=== PATIENT | female | born 1930 | race Caucasian/White ===

== ENCOUNTER 2018-11-02 16:53 | Observation (INO) ==
--- NOTE | 2018-11-02 17:23 | Emergency Department Note ---
Disposition Clinical Impression: CHF (congestive heart failure) Qualifiers: Heart failure type: unspecified Heart failure chronicity: unspecified Qualified Code(s): I50.9 - Heart failure, unspecified Disposition: Admitted As Inpatient Condition: Good General Adult HPI - General Stated complaint: chest pain Time Seen by Provider: 11/02/18 17:17 - Related Data Home Medications Medication Instructions Recorded Confirmed RX: Amlodipine [Norvasc] 5 mg PO DAILY 04/17/15 11/02/18 RX: Ferrous Sulfate 325 mg PO DAILY 04/17/15 11/02/18 RX: Lansoprazole [Prevacid] 30 mg PO DAILY PRN 04/17/15 11/02/18 RX: Metoprolol XL (24 HR) Succ 25 mg PO DAILY 04/17/15 11/02/18 [Toprol Xl] RX: Potassium Chloride 20 meq PO DAILY 04/17/15 11/02/18 RX: Cephalexin [Keflex] 500 mg PO DAILY 02/23/18 11/02/18 Previous Rx's Medication Instructions Recorded RX: Psyllium Husk [Daily Fiber] 1 tab PO DAILY #160 capsule 11/24/17 RX: Ergocalciferol (VITAMIN D2) 50,000 unit PO QWEEK #12 capsule 05/12/18 [Drisdol (50,000 Unit)] Furosemide [Lasix] 20 mg PO DAILY #30 tablet 11/03/18 Allergies Allergy/AdvReac Type Severity Reaction Status Date / Time Sulfa (Sulfonamide AdvReac Rash Verified 09/01/18 14:57 Antibiotics) Past Medical History - Past Medical History Medical history: Reports: GERD, hypertension, other Surgical history: Reports: hysterectomy Psychiatric history: Reports: no psych history LAUNDRY MACHINE OPERATOR history: Reports: no LAUNDRY MACHINE OPERATOR history - Social History Smoking Status: Never smoker Smokeless Tobacco Status: No Alcohol use: Reports: none Drug use: Reports: none Course Vital Signs Temperature 98.9 F 11/02/18 17:23 Pulse Rate 65 11/02/18 17:23 Respiratory Rate 20 11/02/18 17:23 Blood Pressure 134/58 11/02/18 17:23 O2 Sat by Pulse Oximetry 92 11/02/18 17:23 Temperature 98.1 F 11/03/18 11:33 Pulse Rate 59 11/03/18 11:33 Respiratory Rate 18 11/03/18 11:33 Blood Pressure 128/83 11/03/18 11:33 O2 Sat by Pulse Oximetry 95 11/03/18 12:31 Oxygen Delivery Oxygen Delivery Room Air Medical Decision Making - Lab Data Result diagrams: 11/03/18 01:47 11/03/18 01:47 Lab Results 11/02/18 11/02/18 11/02/18 Range/Units 17:20 17:20 17:20 WBC 8.2 (4.3-11.1) K/mcL RBC 3.59 L (3.82-4.97) M/mcL Hgb 10.9 L (11.5-15.4) g/dL Hct 33.5 L (35.3-44.9) % MCV 93.3 (83.0-100.0) fL MCH 30.4 (28.0-33.3) pg MCHC 32.5 (31.6-35.5) g/dL RDW 13.5 (11.5-14.5) % Plt Count 185 (140-400) K/mcL MPV 10.7 (9.4-12.4) fL Immature Gran % 0.2 (0-4) % Seg Neutrophils % 87.1 % Lymphocytes % 6.6 % Monocytes % 6.1 % Eosinophils % 0.0 % Basophils % 0.0 % Neutrophils # 7.1 (1.6-8.9) K/mcL Lymphocytes # 0.5 L (0.6-4.6) K/mcL Monocytes # 0.5 (0.0-1.3) K/mcL Eosinophils # 0.0 (0.0-0.6) K/mcL Basophils # 0.0 (0.0-0.2) K/mcL Sodium 134 L (136-145) mEq/L Potassium 4.2 (3.5-5.1) mEq/L Chloride 103 (98-107) mEq/L Carbon Dioxide 24 (23-29) mEq/L BUN 20 (8-23) mg/dL Creatinine 0.99 (0.60-1.20) mg/dL Est GFR ( Amer) > 60 (> 60) Est GFR (Non-Af Amer) 53 L (> 60) BUN/Creatinine Ratio 20 (6-26) Glucose 132 H (70-105) mg/dL Calculated Osmolality 282 (280-300) Calcium 10.8 H (8.6-10.3) mg/dL Troponin I < 0.03 (< 0.04) ng/mL B-Natriuretic Peptide 1040 H (Less than 100) pg/mL Attestation Statement - Attestation Attestation: I examined this patient and my medical decision-making was reviewed with the FLAG MAKER/PA/Advanced Practice Nurse/Resident Physician. I agree with the documented findings, disposition and treatment plan as described except to the extent set forth below. She has chest pain which began at midnight last night and is constant and she does have associated diaphoresis and dyspnea but no pleuritic aspect and no radiation of the pain. I did review her EKG showing lateral T-wave inversion in leads aVL and V6 but these were also present on the previous EKG from 02/25/2016. Test results here including troponin and chest x-ray are pending. The patient is otherwise bright and alert and in no distress. [id number]
[2018-11-02 17:32] LABS: Hematocrit 33.5 % (35.3-44.9); Hemoglobin 10.9 g/dL (11.5-15.4); Immature Granulocytes % 0.2 % (0-4); Lymphocytes # 0.5 K/mcL (0.6-4.6); Lymphocytes % 6.6 %; Mean Corpuscular HGB Conc 32.5 g/dL (31.6-35.5); Mean Corpuscular Hemoglobin 30.4 pg (28.0-33.3); Mean Corpuscular Volume 93.3 fL (83.0-100.0); Mean Platelet Volume 10.7 fL (9.4-12.4); Monocytes # 0.5 K/mcL (0.0-1.3); Monocytes % 6.1 %; Neutrophils # 7.1 K/mcL (1.6-8.9); Platelet Count 185 K/mcL (140-400); Red Blood Count 3.59 M/mcL (3.82-4.97); Red Cell Distribution Width 13.5 % (11.5-14.5); Segmented Neutrophils % 87.1 %
[2018-11-02] MEDS ORDERED: Furosemide 40 MG/4 ML VIAL IVP ONE (17:49)
[2018-11-02] MEDS ORDERED: Nitroglycerin 1 INCH/GM PACKET TP ONE (17:49)
[2018-11-02 17:54] LABS: BUN/Creatinine Ratio 20 (6-26); Blood Urea Nitrogen 20 mg/dL (8-23); Calcium 10.8 mg/dL (8.6-10.3); Carbon Dioxide 24 mEq/L (23-29); Chloride 103 mEq/L (98-107); Glucose 132 mg/dL (70-105); Osmolality,Calculated 282 (280-300); Potassium 4.2 mEq/L (3.5-5.1); Sodium 134 mEq/L (136-145); Troponin I < 0.03 ng/mL (< 0.04); eGFR For Non-African Americans 53 (> 60)
--- NOTE | 2018-11-02 18:06 | Emergency Department Note ---
Disposition Clinical Impression: CHF (congestive heart failure) Qualifiers: Heart failure type: unspecified Heart failure chronicity: unspecified Qualified Code(s): I50.9 - Heart failure, unspecified Disposition: Admitted As Inpatient Condition: Fair Referrals: Tristan Rodriguez DO [Primary Care Provider] - Time of Disposition: 18:53 General Adult HPI - General Chief complaint: ED Chest Pain Stated complaint: chest pain Time Seen by Provider: 11/02/18 17:17 Source: patient Limitations: no limitations Nursing Notes Reviewed: Yes Vital Signs Reviewed: Yes - History of Present Illness HPI Narrative: Patient is a 87-year-old female with past medical history significant for hypertension, hyperlipidemia. Presenting for evaluation of chest pressure and shortness of breath. Patient states she was sleeping last night when chest pressure and shortness of breath or woke her up from sleep at approximately midnight. She did have to sit up to catch her breath. Has no prior pulmonary or cardiac history. She states that the pressure has improved somewhat since yesterday. She denies current chest pain. Pt Subjective Complaint: shortness of breath Onset (ago): hour(s) Location: chest Radiation: non-radiation Pain Scale: 0 - Related Data Home Medications Medication Instructions Recorded Confirmed Amlodipine [Norvasc] 5 mg PO DAILY 04/17/15 09/01/18 Ferrous Sulfate 325 mg PO DAILY 04/17/15 09/01/18 Lansoprazole [Prevacid] 30 mg PO DAILY PRN 04/17/15 09/01/18 Metoprolol XL (24 HR) Succ [Toprol 25 mg PO DAILY 04/17/15 09/01/18 XL] Potassium Chloride 20 meq PO DAILY 04/17/15 09/01/18 Cephalexin [Keflex] 500 mg PO DAILY 02/23/18 09/01/18 Previous Rx's Medication Instructions Recorded Psyllium Husk [Daily Fiber] 1 tab PO DAILY #160 capsule 11/24/17 Ergocalciferol (VITAMIN D2) 50,000 unit PO QWEEK #12 capsule 05/12/18 [Drisdol (50,000 Unit)] Allergies Allergy/AdvReac Type Severity Reaction Status Date / Time Sulfa (Sulfonamide AdvReac Rash Verified 09/01/18 14:57 Antibiotics) Constitutional: Denies: fever, chills Eyes: Denies: vision change ENT ED: Reports: congestion. Denies: dysphagia Cardiovascular: Reports: chest pain. Denies: palpitations, syncope Respiratory: Reports: dyspnea. Denies: cough, wheezes Gastrointestinal: Denies: abdominal pain, nausea, vomiting Genitourinary: Denies: urgency, dysuria Musculoskeletal: Denies: back pain, neck pain Integumentary: Denies: rash Neurological: Denies: headache Psychiatric: Denies: anxiety Past Medical History - Past Medical History Source: patient, nursing notes reviewed Medical history: Reports: GERD, hypertension, other Surgical history: Reports: hysterectomy Psychiatric history: Reports: no psych history TAX EXAMINER history: Reports: no TAX EXAMINER history - Social History Smoking Status: Never smoker Smokeless Tobacco Status: No Alcohol use: Reports: none Drug use: Reports: none Physical Exam - General Limitations: no limitations General appearance: alert, in no apparent distress - Head Head exam: atraumatic, normocephalic - Eye Eye exam: Present: PERRL, EOMI. Absent: scleral icterus, conjunctival injection - ENT ENT exam: normal oropharynx, mucous membranes moist - Neck Neck exam: Present: normal inspection, trachea midline - Chest Chest inspection: Present: symmetric chest wall rise - Respiratory Respiratory exam: Present: other (Bibasilar crackles). Absent: respiratory distress, wheezes, prolonged expiratory phase - Cardiovascular Cardiovascular exam: Present: regular rate, normal rhythm. Absent: systolic murmur, diastolic murmur - Abdominal Exam Abdominal exam: Present: soft, Non-Tender. Absent: distention, guarding, rebound - Extremities Exam Extremities exam: Present: pedal edema (1+). Absent: calf tenderness - Back Exam Back exam: Absent: CVA tenderness (R), CVA tenderness (L) - Neurological Exam Neurological exam: Present: alert, oriented X3, CN II-XII intact - Psychiatric Psychiatric exam: Present: normal affect, normal mood (Urine) - Skin Skin exam: Present: warm, dry. Absent: rash Course Course Narrative: We will evaluate with EKG, chest x-ray, BNP, CBC, troponin, and BNP. - Reevaluation(s) Reevaluation #1: Chest x-ray with evidence of pulmonary edema. BNP elevated at approximately 1000. Patient is saturating in the low 90s on room air with mild subjective shortness of breath. Recommend admission for evaluation of possible congestive heart failure. We will give IV Lasix as well as nitro paste. Time: 18:00 Reevaluation #2: Patient is seen and reevaluated at the bedside. No acute changes. Reports that her shortness of breath is improved. Saturating 93% on room air during my evaluation. Patient is agreeable to admission for evaluation of congestive heart failure. Did discuss this case with Dr. Day who accepts the patient for admission. Time: 18:52 Vital Signs Temperature 98.9 F 11/02/18 17:23 Pulse Rate 65 11/02/18 17:23 Respiratory Rate 20 11/02/18 17:23 Blood Pressure 134/58 11/02/18 17:23 O2 Sat by Pulse Oximetry 92 11/02/18 17:23 Temperature 98.9 F 11/02/18 17:23 Pulse Rate 64 11/02/18 18:14 Respiratory Rate 19 11/02/18 18:14 Blood Pressure 134/56 11/02/18 18:14 O2 Sat by Pulse Oximetry 91 11/02/18 18:14 Oxygen Delivery Oxygen Delivery Room Air Medical Decision Making - Lab Data Result diagrams: 11/02/18 17:20 11/02/18 17:20 Lab Results 11/02/18 11/02/18 11/02/18 Range/Units 17:20 17:20 17:20 WBC 8.2 (4.3-11.1) K/mcL RBC 3.59 L (3.82-4.97) M/mcL Hgb 10.9 L (11.5-15.4) g/dL Hct 33.5 L (35.3-44.9) % MCV 93.3 (83.0-100.0) fL MCH 30.4 (28.0-33.3) pg MCHC 32.5 (31.6-35.5) g/dL RDW 13.5 (11.5-14.5) % Plt Count 185 (140-400) K/mcL MPV 10.7 (9.4-12.4) fL Immature Gran % 0.2 (0-4) % Seg Neutrophils % 87.1 % Lymphocytes % 6.6 % Monocytes % 6.1 % Eosinophils % 0.0 % Basophils % 0.0 % Neutrophils # 7.1 (1.6-8.9) K/mcL Lymphocytes # 0.5 L (0.6-4.6) K/mcL Monocytes # 0.5 (0.0-1.3) K/mcL Eosinophils # 0.0 (0.0-0.6) K/mcL Basophils # 0.0 (0.0-0.2) K/mcL Sodium 134 L (136-145) mEq/L Potassium 4.2 (3.5-5.1) mEq/L Chloride 103 (98-107) mEq/L Carbon Dioxide 24 (23-29) mEq/L BUN 20 (8-23) mg/dL Creatinine 0.99 (0.60-1.20) mg/dL Est GFR ( Amer) > 60 (> 60) Est GFR (Non-Af Amer) 53 L (> 60) BUN/Creatinine Ratio 20 (6-26) Glucose 132 H (70-105) mg/dL Calculated Osmolality 282 (280-300) Calcium 10.8 H (8.6-10.3) mg/dL Troponin I < 0.03 (< 0.04) ng/mL B-Natriuretic Peptide 1040 H (Less than 100) pg/mL
[2018-11-02] MEDS ORDERED: Perflutren Lipid Microsphere 1.3 ML in 0.9 % Sodium Chloride 8.7 ML IVP ONE (22:00)
[2018-11-03 02:28] LABS: Basophils % 0.1 %; Eosinophils % 0.1 %; Hematocrit 31.6 % (35.3-44.9); Hemoglobin 10.4 g/dL (11.5-15.4); Immature Granulocytes % 0.3 % (0-4); Lymphocytes # 0.7 K/mcL (0.6-4.6); Lymphocytes % 10.8 %; Mean Corpuscular HGB Conc 32.9 g/dL (31.6-35.5); Mean Corpuscular Hemoglobin 30.3 pg (28.0-33.3); Mean Corpuscular Volume 92.1 fL (83.0-100.0); Mean Platelet Volume 10.8 fL (9.4-12.4); Monocytes # 0.6 K/mcL (0.0-1.3); Monocytes % 8.9 %; Neutrophils # 5.5 K/mcL (1.6-8.9); Platelet Count 148 K/mcL (140-400); Red Blood Count 3.43 M/mcL (3.82-4.97); Red Cell Distribution Width 13.5 % (11.5-14.5); Segmented Neutrophils % 79.8 %
[2018-11-03 02:51] LABS: Alanine Aminotransferase 21 Units/L (7-52); Albumin 3.8 g/dL (3.5-5.7); Albumin/Globulin Ratio 1.7 (1.1-2.2); Alkaline Phosphatase 65 Units/L (34-104); Aspartate Amino Transferase 20 Units/L (13-39); BUN/Creatinine Ratio 23 (6-26); Bilirubin,Total 0.5 mg/dL (0.3-1.0); Blood Urea Nitrogen 20 mg/dL (8-23); Calcium 10.2 mg/dL (8.6-10.3); Carbon Dioxide 26 mEq/L (23-29); Chloride 105 mEq/L (98-107); Globulin 2.2 g/dL (2.4-3.5); Glucose 93 mg/dL (70-105); Magnesium 2.2 mg/dL (1.6-2.6); Osmolality,Calculated 286 (280-300); Potassium 3.9 mEq/L (3.5-5.1); Sodium 137 mEq/L (136-145); eGFR For Non-African Americans > 60 (> 60)
[2018-11-03 03:04] LABS: Thyroid Stimulating Hormone 3.055 mcIU/mL (0.340-5.600)
--- NOTE | 2018-11-03 07:37 | Internal Med History&Physical ---
Date of Encounter: 11/02/18 Time of Encounter: 20:00 Internal Medicine - H&P: HPI Chief complaint: SOB/Chest Pain History of present illness: Ms. Brizuela is a 87 year old female with past medical history significant for hypertension and hyperlipidemia who presented to the ED for evaluation of chest pressure and shortness of breath. Patient states she was sleeping last night when she awoke with chest pressure and shortness of breath at approximately midnight. She states that she did had to sit up to catch her breath. Has no prior pulmonary or cardiac history. She states that the pressure has improved somewhat since yesterday. She denies current chest pain. Chest x-ray with evidence of pulmonary edema. BNP was found to be elevated at approximately 1000. Patient is saturating in the low 90s on room air with mild subjective shortness of breath. Patient received IV Lasix as well as nitro paste. Reports that her shortness of breath is improved. Saturating 93% on room air during my evaluation. Patient admitted for evaluation of possible congestive heart failure. Past Med Surg Social Fam HX - Past Medical History Medical history: GERD, hypertension, other Additional medical history: HHT Psychiatric history: no psych history - Past Surgical History Surgical History: hysterectomy Additional surgical history: colonoscopy - back surgery - Social History Smoking Status: Never smoker Smokeless Tobacco Status: No Alcohol use: none Drug use: none - Family History Father Living Status: Hx Family Genitourinary Disorders: Yes Mother Living Status: Hx Family Cardiac Disorders: Yes Sister Hx Family Cardiac Disorders: Yes Internal Medicine - H&P: Meds Amlodipine [Norvasc] 5 mg PO DAILY 04/17/15 [History] Ferrous Sulfate 325 mg PO DAILY 04/17/15 [History] Lansoprazole [Prevacid] 30 mg PO DAILY PRN 04/17/15 [History] Metoprolol XL (24 HR) Succ [Toprol Xl] 25 mg PO DAILY 04/17/15 [History] Potassium Chloride 20 meq PO DAILY 04/17/15 [History] Psyllium Husk [Daily Fiber] 1 tab PO DAILY #160 capsule 11/24/17 [Rx] Cephalexin [Keflex] 500 mg PO DAILY 02/23/18 [History] Ergocalciferol (VITAMIN D2) [Drisdol (50,000 Unit)] 50,000 unit PO QWEEK #12 capsule 05/12/18 [Rx] Furosemide [Lasix] 20 mg PO DAILY #30 tablet 11/03/18 [Rx] Allergy/AdvReac Type Severity Reaction Status Date / Time Sulfa (Sulfonamide AdvReac Rash Verified 09/01/18 14:57 Antibiotics) All Systems PM: A 10-system review of systems was performed and is negative for pertinent findings except as documented above in the HPI. - Constitutional Constitutional: no chills, no fever(s), no night sweats - EENT Eyes: no change in vision, no discharge, no pain, no photophobia Ears: no ear discharge, no ear pain, no tinnitus Nose, mouth and throat: no dysphagia, no nasal discharge, no neck pain, no sore throat - Cardiovascular Cardiovascular ROS IM: no chest pain, no diaphoresis, no dyspnea, no lightheadedness, no palpitations, no syncope - Respiratory Respiratory: no cough, no dyspnea, no wheezing, no excessive phlegm production - Gastrointestinal Gastrointestinal: no abdominal pain, no diarrhea, no hematemesis, no hematochezia, no melena, no nausea, no vomiting - Genitourinary Genitourinary: no change in urinary stream, no dysuria, no flank pain, no hematuria - Musculoskeletal Musculoskeletal ROS IM: no numbness, no tingling - Integumentary Integumentary IM: no rash, no unusual bruising - Neurological Neurological ROS: no confusion, no convulsions, no focal weakness, no numbness, no tingling, no tremor(s) - Hematologic/Lymphatic Hematologic/Lymphatic: no easy bruising - Constitutional Vitals: Temp Pulse Resp BP Pulse Ox 97.7 F 49 14 115/61 91 11/03/18 07:20 11/03/18 07:20 11/03/18 07:20 11/03/18 07:20 11/03/18 07:20 Exam: General: Alert and oriented 3 lying in bed in no acute distress Skin:Normal color, no rash, no lesions. HEENT:EOM, pupils equal, round and reactive. Cardiovascular:Normal S1 & S2, no rubs, murmurs or gallops. No JVD. Pulse regular. Lungs:Normal breath sounds, no wheezes or crackles. Abdomen:Soft, non-tender, no rigidity. Extremities:No deformity, no edema or tenderness, no joint swelling or clubbing. Neurological:Normal cognition and motor skills. Pulses:Carotid and radial pulses normal +2. Rest of the physical exam is non contributory Internal Med - H&P Results - Labs CBC & Chem 7: 11/03/18 01:47 11/03/18 01:47 Labs: Short CBC 11/02/18 11/03/18 Range/Units 17:20 01:47 WBC 8.2 6.9 (4.3-11.1) K/mcL Hgb 10.9 L 10.4 L (11.5-15.4) g/dL Hct 33.5 L 31.6 L (35.3-44.9) % Plt Count 185 148 (140-400) K/mcL Neutrophils # 7.1 5.5 (1.6-8.9) K/mcL BMP 11/02/18 11/03/18 17:20 01:47 Sodium 134 L 137 Potassium 4.2 3.9 Chloride 103 105 Carbon Dioxide 24 26 BUN 20 20 Creatinine 0.99 0.88 Glucose 132 H 93 Calcium 10.8 H 10.2 Cardiac Enzymes 11/02/18 Range/Units 17:20 Troponin I < 0.03 (< 0.04) ng/mL Liver Function 11/03/18 Range/Units 01:47 Total Bilirubin 0.5 (0.3-1.0) mg/dL AST 20 (13-39) Units/L ALT 21 (7-52) Units/L Alkaline Phosphatase 65 (34-104) Units/L Albumin 3.8 (3.5-5.7) g/dL - Impressions ITS Impressions Chest X-Ray 11/02/18 17:03 IMPRESSION: Findings most compatible with pulmonary edema but correlate with any clinical evidence of superimposed pneumonia. D/ / Keith Adames MD / Keith Adames MD Interpreting Provider: Keiht Adames MD - Assessment and Plan (1) CHF (congestive heart failure) Status: Acute Assessment and plan: Patient presents with shortness of breath which appears to be orthoptnic in nature concerning for congestive heart failure. Patient had previous echo in 2018 which showed a EF of 60% with normal LV size and function. Low suspicion for ischemia. Currently stable and saturating in the mid 90s on room air. -Strict I's and O's, daily weights -We will obtain an echocardiogram -Consider cardiology consult Qualifiers: Heart failure type: unspecified Heart failure chronicity: unspecified Qualified Code(s): I50.9 - Heart failure, unspecified (2) Chest pain Status: Acute Assessment and plan: Patient reports chest pain that appears to be positional in nature. Negative troponin. EKG unremarkable. Low suspicion for ACS. 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 Hemoglobin appears to be at baseline. We will monitor. Qualifiers: Anemia type: unspecified type Qualified Code(s): D64.9 - Anemia, unspecified (4) Hereditary hemorrhagic telangiectasia Status: Chronic (5) DVT prophylaxis Status: Acute - Time Spent With Patient Total time spent is greater than 50% in coordination of care (as documented) at patient's floor/unit and/or counseling patient:
[2018-11-03 08:15] LABS: Troponin I 0.03 ng/mL (< 0.04)
[2018-11-03] MEDS ORDERED: Cholecalciferol (D-3) 1,000 UNIT TABLET PO SCH (09:00)
[2018-11-03] MEDS ORDERED: Metoprolol XL (24 HR) Succ 25 MG TAB.ER.24H PO SCH (09:00)
[2018-11-03] MEDS ORDERED: amLODIPine 5 MG TABLET PO SCH (09:00)
[2018-11-03 11:35] VITALS: BP 128/83
[2018-11-03] MEDS ORDERED: Furosemide 20 MG/2 ML VIAL IVP ONE ×2 (11:40→11:57)
--- NOTE | 2018-11-03 11:53 | Discharge Summary ---
- NOTES TO OUTPATIENT PROVIDER Notes to Outpatient Provider: f/u with PCP in one week. Please start taking Lasix 20mg Po Daily. Please check daily weights, If you gained more than 2 lbs, please take an extra dose of lasix and call your PCP. 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 Brizuela is a 87 year old female with past medical history significant for hypertension and hyperlipidemia who presented to the ED for evaluation of chest pressure and shortness of breath. Patient states she was sleeping last night when she awoke with chest pressure and shortness of breath at approximately midnight. She states that she did had to sit up to catch her breath. Has no prior pulmonary or cardiac history. In the ER her chest x-ray showed pulmonary edema. BNP was found to be elevated at approximately 1000. Pt was admitted in the hospital and placed her on landscape engineer. Her serial troponin came back negative. Pt was give IV lasix x 2 doses, she felt lot better today. Her 2 D Echo showed preserved LVEF and moderate left ventricular diastolic dysfunction. 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 - Time Spent with Patient Total time spent providing and/or coordinating discharge services: - Discharge Medications Prescriptions: New Furosemide [Lasix] 20 mg PO DAILY #30 tablet Aspirin Enteric Coated [Aspirin EC] 81 mg PO DAILY #30 tablet. Continue Amlodipine [Norvasc] 5 mg PO DAILY Potassium Chloride 20 meq PO DAILY Lansoprazole [Prevacid] 30 mg PO DAILY PRN PRN Reason: Heartburn Ferrous Sulfate 325 mg PO DAILY Metoprolol XL (24 HR) Succ [Toprol Xl] 25 mg PO DAILY Psyllium Husk [Daily Fiber] 1 tab PO DAILY #160 capsule Cephalexin [Keflex] 500 mg PO DAILY Ergocalciferol (VITAMIN D2) [Drisdol (50,000 Unit)] 50,000 unit PO QWEEK #12 capsule Home Medications: Amlodipine [Norvasc] 5 mg PO DAILY 04/17/15 [History] Ferrous Sulfate 325 mg PO DAILY 04/17/15 [History] Lansoprazole [Prevacid] 30 mg PO DAILY PRN 04/17/15 [History] Metoprolol XL (24 HR) Succ [Toprol Xl] 25 mg PO DAILY 04/17/15 [History] Potassium Chloride 20 meq PO DAILY 04/17/15 [History] Psyllium Husk [Daily Fiber] 1 tab PO DAILY #160 capsule 11/24/17 [Rx] Cephalexin [Keflex] 500 mg PO DAILY 02/23/18 [History] Ergocalciferol (VITAMIN D2) [Drisdol (50,000 Unit)] 50,000 unit PO QWEEK #12 capsule 05/12/18 [Rx] Furosemide [Lasix] 20 mg PO DAILY #30 tablet 11/03/18 [Rx] Allergies/Adverse Reactions: Allergy/AdvReac Type Severity Reaction Status Date / Time Sulfa (Sulfonamide AdvReac Rash Verified 09/01/18 14:57 Antibiotics) Date of admission: 11/02/18 19:21 Primary care physician: Sandip Rodriguez DO Consults: 11/02/18 19:45 Consult to Cardiac Rehabilitation-Phase1 [CONS] Routine Comment: Reason for Consult: heart failure Call Completed: Yes Consult to Nurse Navigator [CONS] Routine Comment: CHF - Constitutional Vitals: Temp Pulse Resp BP Pulse Ox 98.1 F 59 18 128/83 95 11/03/18 11:33 11/03/18 11:33 11/03/18 11:33 11/03/18 11:33 11/03/18 11:33 General appearance: Present: cooperative, A&O X 3, no acute distress, answers questions appropriately Exam: Gen: Alert, awake, Oriented to time,place and person Chest: Diminished breath sounds B/L, No wheezing, No crackles, No rales Heart: S1S2+ RRR No murmurs Abd: Soft, NT, BS +, No organomegaly Ext: No edema, pulses are palpable, No calf tenderness Neuro : Benign findings Skin: No rash. - Patient Status Disposition: Home, Self-Care Condition: Good Overall status at discharge: patient is back to baseline - Discharge Instructions Follow Up With: Tristan Rodriguez DO [Primary Care Provider] - (Follow up has been requested) Forms: ED Satisfaction Letter - Diet and Activity Activity: increase activity as tolerated Diet: low salt diet
--- NOTE | 2018-11-04 14:27 | Electrocardiograph Report ---
[address] [place], [place] [address] Test Date: 2018-11-02 Pat Name: Susi Brizuela Department: [id number] Room: 3B21 Gender: F Bilingual Speech Therapist: : 1930 Requested By: Errol Goldstein Order Number: [id number] Reading MD: Kelly Serra Measurements Intervals [place] Rate: 63 P: 57 ND: 186 QRS: 88 QRSD: 116 T: 77 QT: 448 QTc: 459 Interpretive Statements Sinus rhythm Left atrial enlargement Incomplete right bundle branch block Left ventricular hypertrophy Nonspecific T abnormalities, lateral leads Electronically Signed On 11-04-2018 14:25:44 EDT by Kelly Serra
== END 2018-11-03 14:24 | disposition home or self-care (01) ==
LOC: EMEROOARM 16:53 → 3BNU 16:53 → SUATTDRO 19:21 → 3BNU 19:51
PROVIDERS: ADMIT Internal Medicine; ATTEND Family Medicine

== ENCOUNTER 2019-03-15 20:36 | Observation (INO) ==
[2019-03-15 21:30] LABS: Basophils % 0.4 %; Eosinophils # 0.1 K/mcL (0.0-0.6); Eosinophils % 2.3 %; Hematocrit 33.4 % (35.3-44.9); Hemoglobin 10.6 g/dL (11.5-15.4); Immature Granulocytes % 0.2 % (0-4); Lymphocytes # 0.8 K/mcL (0.6-4.6); Lymphocytes % 16.1 %; Mean Corpuscular HGB Conc 31.7 g/dL (31.6-35.5); Mean Corpuscular Hemoglobin 29.1 pg (28.0-33.3); Mean Corpuscular Volume 91.8 fL (83.0-100.0); Mean Platelet Volume 10.4 fL (9.4-12.4); Monocytes # 0.5 K/mcL (0.0-1.3); Monocytes % 9.3 %; Neutrophils # 3.5 K/mcL (1.6-8.9); Platelet Count 178 K/mcL (140-400); Red Blood Count 3.64 M/mcL (3.82-4.97); Red Cell Distribution Width 14.3 % (11.5-14.5); Segmented Neutrophils % 71.7 %; White Blood Count 4.8 K/mcL (4.3-11.1)
[2019-03-15 21:31] LABS: Bilirubin,Urine Negative (Negative); Blood,Urine Negative (Negative); Clarity,Urine Clear (Clear); Color,Urine Yellow (Yellow); Glucose,Urine (UA) Normal (Normal); Ketones,Urine Negative (Negative); Leukocyte Esterase,Urine Large (Negative); Nitrite,Urine Negative (Negative); PH,Urine 6.5 pH Units (5.0-8.0); Protein,Urine Negative (Neg-Trace); Specific Gravity,Urine 1.007 (1.010-1.025); Urobilinogen,Urine Normal (Normal)
[2019-03-15 21:33] LABS: Bacteria,Urine None Seen per hpf (None-Few); Hyaline Casts,Urine None Seen per lpf (None-Few); RBC,Urine 0-3 per hpf (0-3); Squamous Epithelial Cell,Urine Few per lpf (None-Few); WBC,Urine 50-100 per hpf (0-3)
[2019-03-15 21:53] LABS: BUN/Creatinine Ratio 14 (6-26); Blood Urea Nitrogen 21 mg/dL (8-23); Calcium 11.2 mg/dL (8.6-10.3); Carbon Dioxide 23 mEq/L (23-29); Chloride 103 mEq/L (98-107); Glucose 106 mg/dL (70-105); Osmolality,Calculated 283 (280-300); Potassium 4.2 mEq/L (3.5-5.1); Sodium 135 mEq/L (136-145); eGFR For African Americans 39 (> 60); eGFR For Non-African Americans 33 (> 60)
[2019-03-15 21:54] LABS: Troponin I < 0.03 ng/mL (< 0.04)
[2019-03-15] MEDS ORDERED: 0.9 % Sodium Chloride 500 ML IVC ONE (22:46)
[2019-03-16] MEDS ORDERED: Naloxone 0.4 MG/ML INJ IVP PRN (01:00)
[2019-03-16 10:19] LABS: Basophils % 0.9 %; Eosinophils # 0.1 K/mcL (0.0-0.6); Eosinophils % 2.4 %; Hematocrit 30.9 % (35.3-44.9); Hemoglobin 9.8 g/dL (11.5-15.4); Immature Granulocytes % 0.3 % (0-4); Lymphocytes # 0.6 K/mcL (0.6-4.6); Lymphocytes % 18.6 %; Mean Corpuscular HGB Conc 31.7 g/dL (31.6-35.5); Mean Corpuscular Hemoglobin 29.7 pg (28.0-33.3); Mean Corpuscular Volume 93.6 fL (83.0-100.0); Mean Platelet Volume 11.2 fL (9.4-12.4); Monocytes # 0.3 K/mcL (0.0-1.3); Monocytes % 9.9 %; Neutrophils # 2.3 K/mcL (1.6-8.9); Platelet Count 165 K/mcL (140-400); Red Cell Distribution Width 14.7 % (11.5-14.5); Segmented Neutrophils % 67.9 %; White Blood Count 3.3 K/mcL (4.3-11.1)
[2019-03-16 10:40] LABS: BUN/Creatinine Ratio 18 (6-26); Blood Urea Nitrogen 20 mg/dL (8-23); Calcium 10.2 mg/dL (8.6-10.3); Carbon Dioxide 26 mEq/L (23-29); Chloride 106 mEq/L (98-107); Glucose 94 mg/dL (70-105); Osmolality,Calculated 288 (280-300); Potassium 3.7 mEq/L (3.5-5.1); Sodium 138 mEq/L (136-145); eGFR For African Americans 57 (> 60); eGFR For Non-African Americans 47 (> 60)
[2019-03-16 10:41] LABS: Troponin I < 0.03 ng/mL (< 0.04)
[2019-03-17 08:53] LABS: Calcium 10.7 mg/dL (8.6-10.3); Potassium 3.9 mEq/L (3.5-5.1)
[2019-03-17] MEDS ORDERED: Metoprolol XL (24 HR) Succ 25 MG TAB.ER.24H PO SCH (09:00)
[2019-03-17 12:19] VITALS: BP 119/62
== END 2019-03-17 15:18 | disposition home or self-care (01) ==
LOC: 2NENU 20:36 → EMEROOARM 20:36 → SUATTDRO 23:28 → 2NENU 23:47
PROVIDERS: ADMIT Internal Medicine; ATTEND Internal Medicine

== ENCOUNTER 2020-03-03 20:04 | Observation (INO) ==
[2020-03-03 20:58] LABS: Hematocrit 36.8 % (35.3-44.9); Hemoglobin 11.6 g/dL (11.5-15.4); Mean Corpuscular HGB Conc 31.5 g/dL (31.6-35.5); Mean Corpuscular Hemoglobin 28.8 pg (28.0-33.3); Mean Corpuscular Volume 91.3 fL (83.0-100.0); Mean Platelet Volume 10.9 fL (9.4-12.4); Platelet Count 152 K/mcL (140-400); Red Blood Count 4.03 M/mcL (3.82-4.97); Red Cell Distribution Width 14.9 % (11.5-14.5); White Blood Count 4.5 K/mcL (4.3-11.1)
[2020-03-03 21:16] LABS: BUN/Creatinine Ratio 14 (6-26); Blood Urea Nitrogen 13 mg/dL (8-23); Calcium 10.9 mg/dL (8.6-10.3); Carbon Dioxide 24 mEq/L (23-29); Chloride 104 mEq/L (98-107); Glucose 113 mg/dL (70-105); Osmolality,Calculated 281 (280-300); Potassium 4.2 mEq/L (3.5-5.1); Sodium 135 mEq/L (136-145); eGFR For African Americans > 60 (> 60); eGFR For Non-African Americans 57 (> 60)
[2020-03-03] MEDS ORDERED: cefTRIAXone 1,000 MG in Water for inj. (sterile) 10 ML IVP ONE (21:42)
[2020-03-03] MEDS ORDERED: Azithromycin 500 MG in 0.9 % Sodium Chloride 250 ML IVPB ONE (21:43)
[2020-03-03 22:03] LABS: Troponin I < 0.03 ng/mL (< 0.04)
[2020-03-03 22:30] LABS: Prothrombin Time 11.6 Seconds (9.4-12.1)
[2020-03-03 22:32] LABS: Activated Partial Thrombo Time 34.1 Seconds (26.0-36.0)
[2020-03-03 22:41] LABS: Alanine Aminotransferase 14 Units/L (7-52); Albumin 4.5 g/dL (3.5-5.7); Albumin/Globulin Ratio 1.8 (1.1-2.2); Alkaline Phosphatase 58 Units/L (34-104); Aspartate Amino Transferase 21 Units/L (13-39); Bilirubin,Direct 0.1 mg/dL (0.0-0.2); Bilirubin,Indirect 0.3 mg/dL (0.0-1.0); Bilirubin,Total 0.4 mg/dL (0.3-1.0); Ferritin 205 ng/mL (10-120); Globulin 2.5 g/dL (2.4-3.5); Lactate Dehydrogenase 158 Units/L (140-271); Magnesium 2.1 mg/dL (1.6-2.6); Phosphorous 2.4 mg/dL (2.7-4.5)
[2020-03-03 23:16] LABS: C-Reactive Protein < 5 mg/L (Less than 10)
[2020-03-04] MEDS ORDERED: Naloxone 0.4 MG/ML INJ IVP PRN (00:14)
[2020-03-04] MEDS ORDERED: Acetaminophen 325 MG TABLET PO PRN (03:17)
[2020-03-04 06:00] LABS: Red Blood Count 3.63 M/mcL (3.82-4.97)
[2020-03-04 06:02] LABS: Hematocrit 33.2 % (35.3-44.9); Hemoglobin 10.9 g/dL (11.5-15.4); Immature Platelets 5.2 % (1.1-6.1); Mean Corpuscular HGB Conc 32.8 g/dL (31.6-35.5); Mean Corpuscular Volume 91.5 fL (83.0-100.0); Mean Platelet Volume 11.3 fL (9.4-12.4); Red Cell Distribution Width 14.7 % (11.5-14.5); White Blood Count 4.3 K/mcL (4.3-11.1)
[2020-03-04 06:25] LABS: BUN/Creatinine Ratio 14 (6-26); Blood Urea Nitrogen 12 mg/dL (8-23); Calcium 10.4 mg/dL (8.6-10.3); Carbon Dioxide 22 mEq/L (23-29); Chloride 106 mEq/L (98-107); Glucose 99 mg/dL (70-105); Osmolality,Calculated 284 (280-300); Sodium 137 mEq/L (136-145); eGFR For African Americans > 60 (> 60); eGFR For Non-African Americans > 60 (> 60)
[2020-03-04] MEDS: Furosemide 20 MG/2 ML VIAL IVP SCH (08:00)
[2020-03-04] MEDS ORDERED: cefTRIAXone 1,000 MG in Water for inj. (sterile) 10 ML IVP SCH (09:00)
[2020-03-04 09:34] LABS: Adenovirus Not Detected (Not Detect); Bordetella Pertussis Not Detected (Not Detect); Chlamydophila pneumoniae Not Detected (Not Detect); Coronavirus 229E Not Detected (Not Detect); Coronavirus HKU1 Not Detected (Not Detect); Coronavirus NL63 Not Detected (Not Detect); Coronavirus OC43 Not Detected (Not Detect); Human Metapneumovirus Not Detected (Not Detect); Human Rhinovirus/Enterovirus Not Detected (Not Detect); Influenza A Subtype 2009 H1 Not Detected (Not Detect); Influenza B Not Detected (Not Detect); Mycoplasma pneumoniae Not Detected (Not Detect); Parainfluenza Virus 1 Not Detected (Not Detect); Parainfluenza Virus 2 Not Detected (Not Detect); Parainfluenza Virus 3 Not Detected (Not Detect); Parainfluenza Virus 4 Not Detected (Not Detect); Respiratory Syncytial Virus Not Detected (Not Detect)
[2020-03-04 09:36] LABS: SARS-CoV-2 Not Detected (Not Detect)
[2020-03-04] MEDS ORDERED: Famotidine 20 MG TABLET PO PRN ×2 (10:36→12:57)
[2020-03-04] MEDS: Metoprolol XL (24 HR) Succ 25 MG TAB.ER.24H PO SCH (11:23)
[2020-03-04] MEDS: amLODIPine 5 MG TABLET PO SCH (11:24)
[2020-03-04] MEDS ORDERED: Furosemide 40 MG/4 ML VIAL IVP ONE (13:00)
[2020-03-04] MEDS ORDERED: Azithromycin 500 MG in D5% in Water 250 ML IVPB SCH (21:00)
[2020-03-05 04:37] LABS: Hematocrit 33.5 % (35.3-44.9); Hemoglobin 10.7 g/dL (11.5-15.4); Mean Corpuscular HGB Conc 31.9 g/dL (31.6-35.5); Mean Corpuscular Hemoglobin 28.8 pg (28.0-33.3); Mean Corpuscular Volume 90.3 fL (83.0-100.0); Mean Platelet Volume 11.1 fL (9.4-12.4); Platelet Count 138 K/mcL (140-400); Red Blood Count 3.71 M/mcL (3.82-4.97); Red Cell Distribution Width 14.7 % (11.5-14.5); White Blood Count 3.5 K/mcL (4.3-11.1)
[2020-03-05 04:51] LABS: BUN/Creatinine Ratio 15 (6-26); Blood Urea Nitrogen 15 mg/dL (8-23); Calcium 10.3 mg/dL (8.6-10.3); Carbon Dioxide 23 mEq/L (23-29); Chloride 103 mEq/L (98-107); Glucose 89 mg/dL (70-105); Magnesium 2.2 mg/dL (1.6-2.6); Osmolality,Calculated 278 (280-300); Potassium 3.7 mEq/L (3.5-5.1); Sodium 134 mEq/L (136-145); eGFR For African Americans > 60 (> 60); eGFR For Non-African Americans 53 (> 60)
[2020-03-05] MEDS ORDERED: *HR* Enoxaparin 40 MG/0.4 ML SYRINGE SQ SCH (06:00)
[2020-03-05] MEDS: amLODIPine 5 MG TABLET PO SCH (08:44)
[2020-03-05] MEDS: Metoprolol XL (24 HR) Succ 25 MG TAB.ER.24H PO SCH (08:44)
[2020-03-05] MEDS: Furosemide 20 MG/2 ML VIAL IVP SCH (08:45)
[2020-03-05] MEDS ORDERED: Azithromycin 250 MG TABLET PO SCH (09:00)
[2020-03-05 11:59] VITALS: BP 136/58
== END 2020-03-05 13:30 | disposition home or self-care (01) ==
LOC: EMEROOARM 20:04 → 2NENU 20:04 → SUATTDRO 22:26 → 2NENU 23:56 → 3NENU 03-04 11:12
PROVIDERS: ADMIT Family Medicine; ATTEND Pharmacist

== ENCOUNTER 2020-07-02 23:08 | Observation (INO) ==
[2020-07-03 00:03] LABS: Basophils % 0.7 %; Eosinophils % 0.7 %; Hematocrit 28.7 % (35.3-44.9); Hemoglobin 9.1 g/dL (11.5-15.4); INR 1.1; Immature Granulocytes % 0.2 % (0-4); Lymphocytes # 0.5 K/mcL (0.6-4.6); Lymphocytes % 10.7 %; Mean Corpuscular HGB Conc 31.7 g/dL (31.6-35.5); Mean Corpuscular Hemoglobin 28.6 pg (28.0-33.3); Mean Corpuscular Volume 90.3 fL (83.0-100.0); Mean Platelet Volume 10.7 fL (9.4-12.4); Monocytes # 0.3 K/mcL (0.0-1.3); Monocytes % 8.1 %; Neutrophils # 3.3 K/mcL (1.6-8.9); Platelet Count 147 K/mcL (140-400); Prothrombin Time 12.2 Seconds (9.4-12.1); Red Blood Count 3.18 M/mcL (3.82-4.97); Red Cell Distribution Width 13.8 % (11.5-14.5); Segmented Neutrophils % 79.6 %; White Blood Count 4.2 K/mcL (4.3-11.1)
[2020-07-03 00:06] LABS: Activated Partial Thrombo Time 29.3 Seconds (26.0-36.0)
[2020-07-03 00:14] LABS: Magnesium 2.2 mg/dL (1.6-2.6)
[2020-07-03 00:15] LABS: BUN/Creatinine Ratio 15 (6-26); Blood Urea Nitrogen 19 mg/dL (8-23); Calcium 10.6 mg/dL (8.6-10.3); Carbon Dioxide 22 mEq/L (23-29); Chloride 107 mEq/L (98-107); Glucose 117 mg/dL (70-105); Osmolality,Calculated 287 (280-300); Sodium 137 mEq/L (136-145); eGFR For African Americans 48 (> 60); eGFR For Non-African Americans 39 (> 60)
[2020-07-03 00:16] LABS: Troponin I < 0.03 ng/mL (< 0.04)
[2020-07-03 00:28] LABS: Thyroid Stimulating Hormone 2.462 mcIU/mL (0.340-5.600)
[2020-07-03] MEDS ORDERED: Ondansetron ODT 4 MG TAB.RAPDIS SL PRN (02:31)
[2020-07-03] MEDS ORDERED: Acetaminophen 325 MG TABLET PO PRN (02:31)
[2020-07-03] MEDS ORDERED: Naloxone 0.4 MG/ML INJ IVP PRN (02:31)
[2020-07-03] MEDS: 0.9 % Sodium Chloride 1,000 ML IVC SCH ×2 (03:04→13:12)
[2020-07-03 06:52] LABS: Hematocrit 26.8 % (35.3-44.9); Hemoglobin 8.4 g/dL (11.5-15.4); Mean Corpuscular HGB Conc 31.3 g/dL (31.6-35.5); Mean Corpuscular Hemoglobin 28.3 pg (28.0-33.3); Mean Corpuscular Volume 90.2 fL (83.0-100.0); Mean Platelet Volume 10.7 fL (9.4-12.4); Platelet Count 143 K/mcL (140-400); Red Blood Count 2.97 M/mcL (3.82-4.97); Red Cell Distribution Width 14.1 % (11.5-14.5); White Blood Count 3.6 K/mcL (4.3-11.1)
[2020-07-03 07:10] LABS: Magnesium 2.1 mg/dL (1.6-2.6); Phosphorous 3.1 mg/dL (2.7-4.5); Potassium 3.8 mEq/L (3.5-5.1)
[2020-07-03] MEDS ORDERED: Ondansetron ODT 4 MG TAB.RAPDIS PO PRN (07:46)
[2020-07-03] MEDS: Cholecalciferol (D-3) 1,000 UNIT (25MCG) TABLET PO SCH (09:25)
[2020-07-03] MEDS: Metoprolol XL (24 HR) Succ 25 MG TAB.ER.24H PO SCH (09:25)
[2020-07-03] MEDS: amLODIPine 5 MG TABLET PO SCH (09:26)
[2020-07-03] MEDS: Psyllium 1 PACKET POWD.PACK PO SCH (09:30)
[2020-07-03 23:08] LABS: Bilirubin,Urine Negative (Negative); Blood,Urine Negative (Negative); Clarity,Urine Clear (Clear); Color,Urine Colorless (Yellow); Glucose,Urine (UA) Normal (Normal); Ketones,Urine Negative (Negative); Leukocyte Esterase,Urine Small (Negative); Nitrite,Urine Negative (Negative); PH,Urine 6.5 pH Units (5.0-8.0); Protein,Urine Negative (Neg-Trace); RBC,Urine 0-3 per hpf (0-3); Specific Gravity,Urine 1.007 (1.010-1.025); Squamous Epithelial Cell,Urine Few per hpf (None-Few); Urobilinogen,Urine Normal (Normal)
[2020-07-04 02:51] LABS: Hematocrit 26.8 % (35.3-44.9); Hemoglobin 8.7 g/dL (11.5-15.4); Mean Corpuscular HGB Conc 32.5 g/dL (31.6-35.5); Mean Corpuscular Hemoglobin 29.5 pg (28.0-33.3); Mean Corpuscular Volume 90.8 fL (83.0-100.0); Mean Platelet Volume 11.5 fL (9.4-12.4); Platelet Count 142 K/mcL (140-400); Red Blood Count 2.95 M/mcL (3.82-4.97); Red Cell Distribution Width 14.3 % (11.5-14.5); White Blood Count 3.6 K/mcL (4.3-11.1)
[2020-07-04 03:03] LABS: Calcium 9.1 mg/dL (8.6-10.3); Potassium 3.9 mEq/L (3.5-5.1)
[2020-07-04] MEDS: Metoprolol XL (24 HR) Succ 25 MG TAB.ER.24H PO SCH (08:47)
[2020-07-04] MEDS: Psyllium 1 PACKET POWD.PACK PO SCH (08:48)
[2020-07-04] MEDS: Cholecalciferol (D-3) 1,000 UNIT (25MCG) TABLET PO SCH (08:48)
[2020-07-04] MEDS: amLODIPine 5 MG TABLET PO SCH (08:48)
[2020-07-05 07:10] VITALS: BP 108/71
[2020-07-05] MEDS: Cholecalciferol (D-3) 1,000 UNIT (25MCG) TABLET PO SCH (08:21)
[2020-07-05] MEDS: amLODIPine 5 MG TABLET PO SCH (08:22)
[2020-07-05] MEDS: Metoprolol XL (24 HR) Succ 25 MG TAB.ER.24H PO SCH (08:24)
== END 2020-07-05 12:06 | disposition home or self-care (01) ==
LOC: EMEROOARM 23:08 → 3BNU 23:08 → SUATTDRO 07-03 02:04 → 3BNU 07-03 02:40
PROVIDERS: ADMIT Family Medicine; ATTEND General Practice

== ENCOUNTER 2020-10-30 13:27 | Observation (INO) ==
[2020-10-30 14:05] LABS: Basophils % 1.2 %; Eosinophils # 0.1 K/mcL (0.0-0.6); Hemoglobin 9.8 g/dL (11.5-15.4); Immature Granulocytes % 0.3 % (0-4); Lymphocytes # 0.7 K/mcL (0.6-4.6); Lymphocytes % 19.4 %; Mean Corpuscular HGB Conc 31.6 g/dL (31.6-35.5); Mean Corpuscular Hemoglobin 29.3 pg (28.0-33.3); Mean Corpuscular Volume 92.5 fL (83.0-100.0); Mean Platelet Volume 10.2 fL (9.4-12.4); Monocytes # 0.4 K/mcL (0.0-1.3); Monocytes % 10.1 %; Neutrophils # 2.3 K/mcL (1.6-8.9); Platelet Count 209 K/mcL (140-400); Red Blood Count 3.35 M/mcL (3.82-4.97); Red Cell Distribution Width 15.3 % (11.5-14.5); White Blood Count 3.5 K/mcL (4.3-11.1)
[2020-10-30 14:23] LABS: Alanine Aminotransferase 10 Units/L (7-52); Albumin 4.5 g/dL (3.5-5.7); Albumin/Globulin Ratio 1.6 (1.1-2.2); Alkaline Phosphatase 54 Units/L (34-104); Aspartate Amino Transferase 16 Units/L (13-39); BUN/Creatinine Ratio 13 (6-26); Bilirubin,Total 0.5 mg/dL (0.3-1.0); Blood Urea Nitrogen 16 mg/dL (8-23); Calcium 11.4 mg/dL (8.6-10.3); Carbon Dioxide 24 mEq/L (23-29); Chloride 106 mEq/L (98-107); Globulin 2.9 g/dL (2.4-3.5); Glucose 105 mg/dL (70-105); Osmolality,Calculated 282 (280-300); Potassium 4.4 mEq/L (3.5-5.1); Sodium 135 mEq/L (136-145); Total Protein 7.4 g/dL (6.4-8.9); Troponin I < 0.03 ng/mL (< 0.04); eGFR For African Americans 52 (> 60); eGFR For Non-African Americans 43 (> 60)
[2020-10-30 15:39] LABS: Bacteria,Urine Few per hpf (None-Few); Bilirubin,Urine Negative (Negative); Blood,Urine Negative (Negative); Clarity,Urine Clear (Clear); Color,Urine Colorless (Yellow); Glucose,Urine (UA) Normal (Normal); Ketones,Urine Negative (Negative); Leukocyte Esterase,Urine Large (Negative); Mucus,Urine Few per lpf (None-Few); Nitrite,Urine Negative (Negative); Protein,Urine Negative (Neg-Trace); RBC,Urine 0-3 per hpf (0-3); Specific Gravity,Urine 1.007 (1.010-1.025); Squamous Epithelial Cell,Urine Few per hpf (None-Few); Urobilinogen,Urine Normal (Normal); WBC,Urine 30-50 per hpf (0-3)
[2020-10-30] MEDS ORDERED: Ondansetron 4 MG/2 ML VIAL IVP PRN (17:12)
[2020-10-30] MEDS ORDERED: Acetaminophen 325 MG TABLET PO PRN (17:12)
[2020-10-30] MEDS ORDERED: Furosemide 20 MG/2 ML VIAL IVP ONE (17:16)
[2020-10-30] MEDS ORDERED: Furosemide 40 MG/4 ML VIAL IVP ONE (17:16)
[2020-10-30] MEDS ORDERED: Iron Sucrose Complex 400 MG in 0.9 % Sodium Chloride 250 ML IVPB ONE (17:40)
[2020-10-30 18:01] LABS: Magnesium 2.2 mg/dL (1.6-2.6); Phosphorous 3.1 mg/dL (2.7-4.5)
[2020-10-31 02:54] LABS: Calcium 10.7 mg/dL (8.6-10.3); Potassium 3.5 mEq/L (3.5-5.1)
[2020-10-31] MEDS ORDERED: Furosemide 40 MG/4 ML VIAL IVP SCH (08:00)
[2020-10-31 08:32] VITALS: BP 114/64
[2020-10-31] MEDS ORDERED: Metoprolol XL (24 HR) Succ 25 MG TAB.ER.24H PO SCH (09:00)
[2020-10-31] MEDS ORDERED: amLODIPine 5 MG TABLET PO SCH (09:00)
== END 2020-10-31 13:30 | disposition home or self-care (01) ==
LOC: EMEROOARM 13:27 → 3BNU 13:27 → SUATTDRO 17:23 → 3BNU 18:05
PROVIDERS: ADMIT General Practice; ATTEND Internal Medicine